=== PATIENT | male | born 1980 | race Caucasian/White ===

== ENCOUNTER 2017-09-20 04:01 | Emergency (ER) | payer SELFPAY ==
[2017-09-20 04:05] VITALS: BP 135/87; PULSE 90; RESP 16; TEMP 99; O2SAT 99
[2017-09-20] MEDS ORDERED: Oxycodone/Acetaminophen 5/325 mg Tab PO STA (04:20)
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
--- NOTE | 2017-09-20 10:31 | RAD ---
PROCEDURE: Left Foot Radiographs. HISTORY: fall COMPARISON: None. FINDINGS: BONES: There is a transverse fracture of the base of the 5th metatarsal bone without dislocation. This is likely an non articular fracture. No destructive bony lesions appreciated underlying this fracture or throughout the remainder of the left foot. JOINTS: Normal. SOFT TISSUES: Normal. OTHER FINDINGS: None. IMPRESSION: Nondisplaced fracture left 5th metatarsal bone proximally. No dislocation.
--- NOTE | 2017-09-20 10:33 | RAD ---
PROCEDURE: Left Ankle Radiographs. HISTORY: fall COMPARISON: None FINDINGS: BONES: There is a fracture of the base of the 5th metatarsal bone. No fracture of the talus medial lateral malleolus or the calcaneus is identified. JOINTS: Normal. No osteoarthritis. Ankle mortise maintained. Talar dome intact SOFT TISSUES: Normal. OTHER FINDINGS: None. IMPRESSION: Fracture of the base of 5th metatarsal with the remainder of the left ankle normal-appearing.
== END 2017-09-20 05:36 | disposition home or self-care (01) ==
LOC: ED 04:01
DX: S92.355A Nondisplaced fracture of fifth metatarsal bone, left foot, initial encounter for closed fracture (principal); W10.9XXA Fall (on) (from) unspecified stairs and steps, initial encounter; Y93.01 Activity, walking, marching and hiking; Y92.009 Unspecified place in unspecified non-institutional (private) residence as the place of occurrence of the external cause; F17.200 Nicotine dependence, unspecified, uncomplicated